=== PATIENT | female | born 1960 | race Caucasian/White ===

== ENCOUNTER 2016-11-07 10:39 | Outpatient (CLI) | payer OTHER ==
--- NOTE | 2016-11-07 13:10 | DIAGNOSTIC IMAGING REPORT ---
PROCEDURE: MR LUMBAR SPINE W/O CONTRAST INDICATION: Back pain TECHNIQUE: Noncontrast T1, T2, and STIR sagittal images. T1 and T2 axial images. COMPARISON: None. FINDINGS: L1-2: Normal. L2-3: Normal. L3-4: There is focal disc herniation at L3-4 on the right. There is also spondylosis with diffuse disc bulge and hypertrophy of the posterior elements. L4-5: At L4-5 there is diffuse disc bulge and hypertrophy of the posterior elements. L5-S1: Normal. IMPRESSION: 1. Spondylosis L3-4 with a focal herniated disc just to the right of midline.
== END 2016-11-07 23:00 ==
LOC: MRI SRH 10:39
DX: M54.9 Dorsalgia, unspecified (principal); M47.816 Spondylosis without myelopathy or radiculopathy, lumbar region; M51.26 Other intervertebral disc displacement, lumbar region